=== PATIENT | female | born 1960 | race Two or more races ===

== ENCOUNTER 2022-01-29 08:30 | Day surgery (SDC) | payer OTHER ==
[~2022-01-29] VITALS: Ht 162.6 cm; Wt 74.4 kg
[2022-01-29] MEDS ORDERED: LIDOCAINE 2% 100 MG/5 ML UJET TP ONE (10:25)
[2022-01-29] MEDS ORDERED: fentaNYL citrate 0.05 MG/ML VIAL ONE (10:25)
[2022-01-29] MEDS ORDERED: diphenhydrAMINE 50 MG/ML VIAL ONE (10:25)
[2022-01-29] MEDS ORDERED: MIDAZOLAM 2 MG/2 ML VIAL ONE (10:25)
[2022-01-29] MEDS ORDERED: MIDAZOLAM 5 MG/5 ML VIAL ONE (10:36)
[2022-01-29] MEDS ORDERED: MIDAZOLAM 2 MG/2 ML VIAL IVP ONE (11:05)
[2022-01-29] MEDS ORDERED: fentaNYL citrate 0.05 MG/ML VIAL IVP ONE (11:05)
== END 2022-01-29 12:07 | disposition home or self-care (01) ==
LOC: MDS 08:30 → MMU 08:33 → MDS 12:07
PROVIDERS: ATTEND Internal Medicine Gastroenterology
DX: Z12.11 Encounter for screening for malignant neoplasm of colon (principal); K63.5 Polyp of colon; K57.30 Diverticulosis of large intestine without perforation or abscess without bleeding; Z86.010 Personal history of colon polyps; K21.9 Gastro-esophageal reflux disease without esophagitis; J45.909 Unspecified asthma, uncomplicated; M19.90 Unspecified osteoarthritis, unspecified site; K30 Functional dyspepsia; Z79.899 Other long term (current) drug therapy; Z20.822 Contact with and (suspected) exposure to COVID-19
CPT/HCPCS: 45385; 87426; J2250; J1200; J3010